=== PATIENT | male | born 1965 | race Caucasian/White ===

== ENCOUNTER 2020-02-19 17:00 | Outpatient (RCR) | payer MEDICAID, SELFPAY | END 2020-03-18 13:55 | disposition home or self-care (01) | LOC: PT.CARL 17:00 | PROVIDERS: PCP Physician Assistant; Visit Provider Nurse Practitioner Family | DX: M54.42 Lumbago with sciatica, left side (principal) | CPT/HCPCS: 97110; 97163 ==

== ENCOUNTER 2024-11-28 10:47 | Outpatient (CLI) | payer MEDICAID, SELFPAY ==
[2024-11-28 11:26] LABS: Basophils # 0.1 K/mm3 (0-0.2); Basophils % 0.8 % (0.1-2.0); Eosinophils # 0.1 K/mm3 (0.0-0.4); Eosinophils % 1.3 % (0.1-12.0); Hematocrit 47.4 % (42.0-52.0); Lymphocytes # 1.4 K/mm3 (0.7-4.5); Lymphocytes % 13.6 % (10-50); Mean Corpuscular HGB Conc 33.8 g/dL (31.8-35.4); Mean Corpuscular Hemoglobin 30.9 pg (27.0-31.2); Mean Corpuscular Volume 91.5 fl (80-94); Mean Platelet Volume 10.1 fl (7.4-10.4); Monocytes # 0.7 K/mm3 (0.1-1.0); Monocytes % 7.1 % (1.7-9.3); Neutrophils # 7.6 K/mm3 (1.8-7.8); Neutrophils % 76.3 % (37.0-80.0); Platelet Count 245 K/mm3 (142-424); Red Blood Count 5.18 M/mm3 (4.60-6.20); Red Cell Distribution Width 12.4 % (11.5-17.5)
[2024-11-28 11:49] LABS: Albumin Level 4.2 g/dl (3.5-5.0); Chloride 104 mmol/L (98-107)
[2024-11-28 11:50] LABS: Potassium 4.5 mmoL/L (3.5-5.1); Sodium 137 mmol/L (136-145)
[2024-11-28 11:52] LABS: Alanine Aminotransferase 36 U/L (12-78); Alkaline Phosphatase 92 U/L (38-126); Anion Gap 8.5 mEq/L (5-15); Aspartate Amino Transferase 31 U/L (17-59); Bilirubin,Direct 0.1 mg/dl (0.0-0.4); Bilirubin,Indirect 0.6 mg/dL (0.0-0.9); Bilirubin,Total 0.7 mg/dl (0.2-1.3); Bilirubin,Unconjugated 0.6 mg/dL (0.0-1.1); Blood Urea Nitrogen 20 mg/dl (9-20); Carbon Dioxide 29 mmol/L (22.0-30.0); Cholesterol 249 mg/dl (140-200); Estimated Glomerular Filt Rate 76 ml/min (>60); GFR (African American) 92 ML/MIN (>60); Total Protein,Serum 6.5 g/dl (6.3-8.2); Triglycerides 235 mg/dl (30-150); VLDL Cholesterol 47 mg/dL (0-40)
[2024-11-28 11:53] LABS: Glucose 91 mg/dl (74-100)
[2024-11-28 12:05] LABS: Direct LDL Cholesterol 152.13 mg/dL (100-129)
[2024-11-28 12:08] LABS: Free T4 (Free Thyroxine) 1.03 ng/dl (0.78-2.19)
[2024-11-28 12:25] LABS: Thyroid Stimulating Hormone 2.36 uIU/mL (0.465-4.68)
[2024-11-28 12:51] LABS: Hemoglobin A1C 5.7 % (4.0-6.0)
[2024-11-28 13:00] LABS: HDL Cholesterol 50 mg/dl (40-60)
== END 2024-11-28 23:59 | disposition home or self-care (01) ==
LOC: LAB 10:49
PROVIDERS: PCP Nurse Practitioner Family; Visit Provider Physician Assistant
DX: I25.10 Atherosclerotic heart disease of native coronary artery without angina pectoris (principal); I10 Essential (primary) hypertension; I25.2 Old myocardial infarction
CPT/HCPCS: 36415; 80048; 80061; 80076; 83036; 83735; 84439; 84443; 85025

== ENCOUNTER 2024-12-06 13:57 | Outpatient (CLI) | payer MEDICAID, SELFPAY ==
--- NOTE | 2024-12-06 14:01 | CT_ITS ---
FINAL REPORT CLINICAL HISTORY: SCREENING current smoker 1/2ppd x39 years COMPARISON: None FINDINGS: CT CHEST LOW DOSE SCREENING HISTORY: Screening exam for lung cancer. DOSE: CTDI vol: 2.90 mGy, DLP: 113.33 mGy*cm TECHNIQUE: Axial CT without IV contrast administration using low dose protocol. This study was performed with techniques to keep radiation doses as low as reasonably achievable, (ALARA). Individualized dose reduction techniques using automated exposure control or adjustment of mA and/or kV according to the patient's size were employed. There are clustered nodules within the lingula best seen on images 203 through 218 of series 2. The largest of these nodules measures up to 6 mm, on image 205. There are small peripheral nodules clustered within the lateral right upper lobe well-seen on images 193 through 207 of series 2. There are numerous peripheral 3 mm or less nodules in the posterior right lower lobe. The overall pattern suggest infectious etiology such as bronchiolitis. No dominant lung mass identified. No pleural or pericardial effusion is seen. No adenopathy or mass lesion is present. IMPRESSION: Numerous small nodules as above measuring 2-6 millimeters favored to represent bronchiolitis. LUNG RADS CATEGORY 0 RECOMMENDATION: 2-month chest CT follow-up recommended per Fleischner criteria. Reviewed, Interpreted and Dictated by Sophia Damon MD Transcribed by Sonali Jefferson Authenticated and [facility]
== END 2024-12-06 23:59 | disposition home or self-care (01) ==
LOC: RAD 13:58
PROVIDERS: PCP Nurse Practitioner Family; Visit Provider Nurse Practitioner Family
DX: Z12.2 Encounter for screening for malignant neoplasm of respiratory organs (principal); F17.210 Nicotine dependence, cigarettes, uncomplicated
CPT/HCPCS: 71271

== ENCOUNTER 2025-02-19 13:58 | Outpatient (CLI) | payer MEDICAID, SELFPAY ==
--- NOTE | 2025-02-19 13:59 | CT_ITS ---
FINAL REPORT CLINICAL HISTORY: INDETERMINATE PULMONARY NODULES COMPARISON: LDCT 12/06/2024 FINDINGS: CT CHEST without contrast COMPARISON: LDCT 12/06/2024. TECHNIQUE: Axial CT without contrast This study was performed with techniques to keep radiation doses as low as reasonably achievable, (ALARA). Individualized dose reduction techniques using automated exposure control or adjustment of mA and/or kV according to the patient's size were employed. FINDINGS: There has been resolution of the bilateral upper lobe bronchiolitis since the prior LDCT of 12/06/2024. There are chronic appearing changes in the posterior costophrenic angle of the right lower lobe. Changes of emphysema are noted. No pleural or pericardial effusion is seen . No adenopathy or mass lesion is present . IMPRESSION: 1. There has been interval resolution of the bilateral upper lobe bronchiolitis since the prior LDCT of 12/06/2024. 2. Chronic appearing changes are present in the posterior costophrenic angle of the right lower lobe. Recommend 8 to 12-month LDCT for further evaluation. This study was performed using automated techniques to achieve radiation exposure as low as reasonably achievable Reviewed, Interpreted and Dictated by Sophia Damon MD Transcribed by Olga Winters Authenticated and [facility][1]
--- OUTSIDE RECORDS SUMMARY | 2025-02-19 14:01 | XMS_ITS | Continuity of Care Document ---
Author Organization [employer], [employer] [facility] Address [address] [place] [address] Assessment No assessment recorded. Plan of Treatment Reminders Order Date Submit Date Provider Last Modified By Organization Details Last Modified Time Details Appointments ANNUAL EXAM 2024 11:00A M Magaly Andrade APRN Not available Not available Not available Lab None recorded. Referral None recorded. Procedures None recorded. Surgeries None recorded. Imaging CT, chest, w/o contrast 2024 025 [facility] (Former[facility], [facility]), [address], [place], [address], 02/13/2025 09:15:26 Medication Orders Breztri Aerospher e 160 mcg-9mcg- 4.8mcg/ac tuation HFA aerosol inhaler 2024 025 [employer] [facility], [address], [place], [id number], 02/12/2025 13:51:21 Patient TargetsNo targets recorded. Patient InstructionsNo instructions recorded. Reason for Referral None Reported. Problems Name Problem SNOMED Code Status Onset Date Resolution Date Notes Provider Name and Address Organization Details Recorded Time Myocardi al infarcti on 65731085 Completed 202204/26/2023 CHAD hyatt [facility] [employer] 14:07:31 Acute bronchit is 22082252 Active 2022 KATHRINE GARCIA- [address] [place], [address] , [place] [employer] 3 14:59:37 Tobacco dependen ce caused by cigarett es [id number] 866456 Active 2024 Problem Code: F17.210; Problem Code Type: ICD-10; Vanessa Andrade APRN [address] [place], [address] , [employer] 5 11:07:21 Atherosc lerosis of coronary artery without angina pectoris 09531174858 4103 Active 2024 Vnaessa Andrade APRN [address], [place], [address] [place] [address] , [employer] 5 11:07:22 Multiple nodules of lung 491156267 Active 2024 Vanessa Andrade APRN [address], [place], [address] [place] [address] , [employer] 5 13:31:50 Candidal balaniti s 78841268 Completed 201808/08/2019 Problem Code: B37.42; Problem Code Type: ICD-10; Not Available [facility] 2 22:46:02 Methicil yasmany resistan t Staphylo coccus aureus infectio n 774325142 Completed 201912/19/2020 Problem Code: B95.62; Problem Code Type: ICD-10; Not Available [facility] 2 22:46:02 Neoplasm of bone 076635604 Completed 201808/08/2019 Not Available [facility] 2 22:46:02 Nicotine dependen ce 32556433 Completed 201807/31/2022 Problem Code: F17.200; Problem Code Type: ICD-10; SILVA hyatt, [employer] 2 10:52:42 Tobacco dependen ce caused by cigarett es 78852422933 328901 Completed 201907/31/2022 Problem Code: F17.210; Problem Code Type: ICD-10; Vanessa Andrade APRN [address] [place], [address] , [employer] 5 11:07:21 Nicotine dependen ce 01696427 Completed 201805/25/2021 Problem Code: F17.200; Problem Code Type: ICD-10; SILVA STEPHENSNEAR null, [employer] 2 10:52:42 Primary insomnia 6694418 Completed 201707/04/2018 Problem Code: F51.01; Problem Code Type: ICD-10; Not Available [facility] 2 22:46:02 Chronic pain syndrome 872595266 Completed 202007/31/2022 Problem Code: G89.4; Problem Code Type: ICD-10; SILVA STEPHENSNEAR null, [employer] 2 10:52:41 Acute maxillar y sinusiti s 42820997 Completed 201808/08/2019 Problem Code: J01.00; Problem Code Type: ICD-10; Not Available [facility] 2 22:46:02 Acute pharyngi tis 648926753 Completed 201807/31/2022 SILVA ANGELONEAR null, [employer] 2 10:52:41 Acute pharyngi tis 101786533 Completed 201808/08/2019 SILVA ANGELONEAR null, [employer] 2 10:52:41 Infectiv e pneumoni a 227171340 Completed 201709/03/2018 Problem Code: J16.8; Problem Code Type: ICD-10; Not Available [facility] 2 22:46:03 Acute exacerba tion of chronic obstruct fozia pulmonar y disease 042437838 Completed 201905/25/2021 Problem Code: J44.1; Problem Code Type: ICD-10; Vanessa Andrade, [employer] [address] [place], [address] , [employer] 5 13:33:27 Chronic obstruct fozia pulmonar y disease 48144501 Active 2017 Problem Code: J44.9; Problem Code Type: ICD-10; CHAD GUADALUPE null, [employer] 3 14:07:31 Exacerba tion of intermit tent asthma 582318098 Completed 201807/31/2022 Problem Code: J45.21; Problem Code Type: ICD-10; SILVA STEPHENSNEAR null, [employer] 2 10:52:41 Exacerba tion of intermit tent asthma 384206098 Completed 201707/01/2018 Problem Code: J45.21; Problem Code Type: ICD-10; SILVA MYNEAR null, [employer] 2 10:52:41 Atelecta sis 02407403 Completed 201808/08/2019 Problem Code: J98.11; Problem Code Type: ICD-10; Not Available [facility] 2 22:46:03 Abscess of buttock 46105767 Completed 201912/19/2020 Problem Code: L02.31; Problem Code Type: ICD-10; Not Available [facility] 2 22:46:03 Constipa tion 96927458 Completed 201807/31/2022 SILVA STEPHENSSUNDAYR null, [employer] 2 10:52:41 Cellulit is of buttock 49295468 Completed 201907/31/2022 Problem Code: L03.317; Problem Code Type: ICD-10; SILVA ANGELONEAR null, [employer] 2 10:52:41 Neck pain 05391200 Completed 201807/31/2022 SILVA ANGELONEAR null, [employer] 2 10:52:42 Acute back pain with sciatica 812860661 Completed 201905/25/2021 Problem Code: M54.42; Problem Code Type: ICD-10; Not Available [facility] 22:46:04 Neck pain 40101988 Completed 201808/08/2019 SILVA CARMONA null, [employer] 10:52:42 Cough 87844863 Completed 201807/31/2022 Problem Code: R05; Problem Code Type: ICD-10; SILVA BURNHAMR null, [employer] 10:52:41 Chest pain 21059164 Completed 201809/10/2019 Problem Code: R07.9; Problem Code Type: ICD-10; SILVA BURNHAMR null, [employer] 10:52:41 Dyspnea 312995327 Completed 201707/19/2018 Problem Code: R06.02; Problem Code Type: ICD-10; SILVA BURNHAMR null, [employer] 10:52:41 Wheezing 97214352 Completed 202007/31/2022 Problem Code: R06.2; Problem Code Type: ICD-10; SILVA BURNHAMR null, [employer] 10:52:42 Chest pain 12337137 Completed 201807/31/2022 Problem Code: R07.89; Problem Code Type: ICD-10; SILVA BURNHAMR null, [employer] 10:52:41 Cough 05014790 Completed 201809/10/2019 Problem Code: R05; Problem Code Type: ICD-10; SILVA BURNHAMR null, [employer] 10:52:41 Fracture of upper end of humerus 681583982 Completed 202007/31/2022 Problem Code: S42.201A ; Problem Code Type: ICD-10; SILVA BURNHAMR null, [employer] 10:52:41 Traumati c rupture of rotator cuff 947140315 Completed 201706/10/2018 Problem Code: S46.091A ; Problem Code Type: ICD-10; Not Available [facility] 22:46:06 Exposure to SARS-CoV -2 Completed 202005/25/2021 Problem Code: Z20.822; Problem Code Type: ICD-10; Not Available [facility] 22:46:06 Influenz a vaccine needed 74282183830 Completed 201808/08/2019 Problem Code: Z23; Problem Code Type: ICD-10; SILVA ANGELONEAR null, [employer] 10:52:41 Influenz a vaccine needed 90366889306 Completed 202007/31/2022 Problem Code: Z23; Problem Code Type: ICD-10; SILVA ANGELONEAR null, [employer] 2 10:52:41 Acute exacerba tion of chronic obstruct fozia pulmonar y disease 664955577 Completed 202005/25/2021 Problem Code: J44.1; Problem Code Type: ICD-10; Vanessa Andrade, [employer] [address] [place] [address], [address] , [employer] 5 13:33:27 Body mass index 20-24 - normal 804736471 Completed 201808/08/2019 SILVA ANGELONEAR null, [employer] 2 10:52:41 Body mass index 20-24 - normal 052700221 Completed 201807/31/2022 SILVA MYNEAR null, [employer] 2 10:52:41 Allergic contact dermatit is caused by plant material 19771773966 474368 Completed 201907/31/2022 Problem Code: L23.7; Problem Code Type: ICD-10; SILVA MYNEAR null, [employer] 2 10:52:41 Pain of right shoulder joint 22999942250 609945 Completed 201704/25/2018 Problem Code: M25.511; Problem Code Type: ICD-10; Not Available [facility] 2 22:46:09 Modesta gordon 061491132 Completed 201707/04/2018 Problem Code: 307.41; Problem Code Type: ICD-9; Not Available [facility] 2 22:46:09 Dyspnea 899057286 Completed 202007/31/2022 Problem Code: R06.00; Problem Code Type: ICD-10; SILVA MYNEAR null, [employer] 10:52:41 Tenderne ss of epigastr ic region 827593490 Completed 201807/31/2022 Problem Code: R10.816; Problem Code Type: ICD-10; SILVA MYNEAR null, [employer] 10:52:41 Pneumoni a 392851686 Completed 201709/03/2018 Problem Code: 483.8; Problem Code Type: ICD-9; Not Available [facility] 2 22:46:10 Respirat ory symptom 665271736 Completed 201707/19/2018 Not Available [facility] 2 22:46:10 Shoulder joint pain 237507370 Completed 201704/25/2018 Problem Code: 719.41; Problem Code Type: ICD-9; Not Available [facility] 2 22:46:10 Injury of shoulder region 334923127 Completed 201706/10/2018 Problem Code: 959.2; Problem Code Type: ICD-9; Not Available [facility] 2 22:46:11 Cough 18612011 Completed 201707/01/2018 Problem Code: 786.2; Problem Code Type: ICD-9; SILVA MYNEAR null, [employer] 10:52:41 Bite of nonvenom ous insect Completed 201907/31/2022 SILVA MYNEAR null, [employer] 2 10:52:42 Influenz a vaccine needed 23570131160 06 Completed 201912/19/2020 Problem Code: Z23; Problem Code Type: ICD-10; SILVA hyatt, [employer] 2 10:52:41 Problem Notes None recorded. Procedures Surgical History Date Name Laterality Status Provider Name and Address Organization Details Recorded Time 3 placement of stent in cardiac conduit completed Vanessa Andrade APRN [address] [place] [address], [address], [employer]. 11/15/2024 11:10:39 6 screening colonoscopy completed Chana Rojas [employer]. 11/05/2022 10:10:44 Imaging Results None recorded. Procedure Notes None recorded. Medical Equipment None Reported. Allergies Allergen ID Allergen Name Allergen Category Reaction Reaction Severity Criticality Documentation Date Start Date Code Code System Note Provider Name and Address Organization Details Recorded Time 49027 Product containin g penicilli n (product) medicatio n rash mild Not available 05/05/20222019 22648 8001 SNOMED CHAD GUADALUPE [employer] 3 14:07:30 17857 morphine sulfate medicatio n Not available Not available Not available 05/05/2022 46943 RxNorm Not Available [facility] 2 22:56:37 84923 tolmetin sodium medicatio n Not available Not available Not available 05/05/2022 90564 RxNorm Chana Rojas [employer] 3 10:09:18 86381 codeine sulfate medicatio n Not available Not available Not available 05/05/2022 19751 RxNorm Not Available [facility] 2 22:56:38 32850 morphine medicatio n rash mild Not available 04/29/20232019 7052 RxNorm CHAD [employer] 3 14:07:30 35199 codeine medicatio n rash mild Not available 04/29/20232019 2670 RxNorm CHAD COLLINS [facility] [employer], [facility]. 14:07:30 Medications Name Sig Start Date Stop Date Status Note LastModified by Organization Details LastModified Time Prescriptio n - Renewal 07/25 completed Not Available Not Available Not Available atorvastati n 40 mg tablet TAKE 1 TABLET 1 TIME EACH DAY AT BEDTIME 07/25 completed Not Available Not Available Not Available Bromfed DM 2 mg-30 mg-10 mg/5 mL oral syrup take 10 millilite rs by oral route every 4 hours PRN cough 09/08 completed Not Available Not Available Not Available promethazin e-DM 6.25 mg-15 mg/5 mL oral syrup Take 1 teaspoon by mouth q 4 to 6 hr 03/10 completed Not Available Not Available Not Available atorvastati n 80 mg tablet TAKE 1 TABLET 1 TIME EACH DAY 07/25 completed Not Available Not Available Not Available carvedilol 6.25 mg tablet TAKE 1 TABLET 2 TIMES EACH DAY 07/25 completed Not Available Not Available Not Available prednisone 10 mg tablet TAKE ACCORDING TO ATTACHED INSTRUCTI ONS 02/07 completed Not Available Not Available Not Available doxycycline hyclate 100 mg capsule TAKE 1 CAPSULE 2 TIMES EACH DAY FOR 10 DAYS 07/25 completed Not Available Not Available Not Available carvedilol 12.5 mg tablet TAKE 1 TABLET 2 TIMES EACH DAY WITH FOOD 07/25 completed Not Available Not Available Not Available ipratropium 0.5 mg-albutero l 3 mg (2.5 mg base)/3 mL nebulizatio n soln INHALE CONTENTS OF 1 VIAL USING A NEBULIZER EVERY 4 HOURS NEEDED active Not Available Not Available No t Available cetirizine 10 mg tablet TAKE 1 TABLET 1 TIME EACH DAY NEEDED 07/31 completed Not Available Not Available Not Available azithromyci n 250 mg tablet TAKE 2 TABLETS ON THE FIRST DAY, THEN TAKE 1 TABLET EACH DAY ON THE NEXT 4 DAYS. 02/07 completed Not Available Not Available Not Available ibuprofen 800 mg tablet TAKE 1 TABLET EVERY 8 HOURS NEEDED FOR PAIN CONTROL 11/15 completed Not Available Not Available Not Available tizanidine 4 mg tablet 1 po q hs 06/10 completed Not Available Not Available Not Available methadone 10 mg tablet 1 tablet QID 07/31 completed Not Available Not Available Not Available meloxicam 15 mg tablet take 1 tablet (15 mg) by oral route once daily for hip pain 11/20 completed Not Available Not Available Not Available prednisone 20 mg tablet TAKE 3 TABLETS 1 TIME EACH DAY FOR 5 DAYS 07/25 completed Not Available Not Available Not Available prednisone 5 mg tablet 10 pills po today and decrease by one pill each day 07/31 completed Not Available Not Available Not Available dextrometho makenna-gabrielf enesin 10 mg-100 mg/5 mL oral syrup Take 1 teaspoon by mouth q4h prn for cough 09/30 completed Not Available Not Available Not Available aspirin 81 mg tablet,scott yed release TAKE 1 TABLET 1 TIME EACH DAY active Not Available Not Available No t Available amitriptyli ne 50 mg tablet Take 1 tablet(s) by mouth at bedtime. 09/02 completed Not Available Not Available Not Available Medrol 4 mg tablet as directed 09/08 completed Not Available Not Available Not Available Zantac 150 mg tablet Take 1 tablet(s) by mouth bid 03/25 completed Not Available Not Available Not Available Serevent Diskus 50 mcg/dose powder for inhalation inhale 1 puff by inhalatio n route 2 times per day in the morning and evening approxima tely 12 hours apart 06/16 completed Not Available Not Available Not Available prednisone 10 mg tablets in a dose pack as directed 02/07 completed Not Available Not Available Not Available Zofran 4 mg tablet Give 1 tablet every 6 hrs as needed for nausea and/or vomiting 01/04 completed Not Available Not Available Not Available famotidine 20 mg tablet TAKE 1 TABLET EVERY 12 HOURS FOR 5 DAYS 11/15 completed Not Available Not Available Not Available magnesium oxide 400 mg (241.3 mg magnesium) tablet TAKE 1 TABLET 1 TIME EACH DAY 02/07 completed Not Available Not Available Not Available benzonatate 100 mg capsule TAKE 1 CAPSULE EVERY 8 HOURS NEEDED FOR COUGH AND CONGESTIO N 11/15 completed Not Available Not Available Not Available doxycycline monohydrate 100 mg capsule TAKE 1 CAPSULE 2 TIMES EACH DAY FOR 10 DAYS 11/25 completed Not Available Not Available Not Available Advair Diskus 250 mcg-50 mcg/dose powder for inhalation inhale 1 puff by inhalatio n route 2 times per day in the morning and evening approxima tely 12 hours apart 06/15 completed Not Available Not Available Not Available montelukast 10 mg tablet take 1 tablet (10 mg) by oral route once daily in the evening for allergies 07/31 completed Not Available Not Available Not Available Levaquin 500 mg tablet Take 1 tablet(s) by mouth daily for 10 days 11/09 completed Not Available Not Available Not Available metoprolol succinate ER 25 mg tablet,exte nded release 24 hr 07/31 completed Not Available Not Available Not Available polyethylen e glycol 3350 17 gram/dose oral powder 1 capful in beverage bid until you get diarrhea 04/05 completed Not Available Not Available Not Available levofloxaci n 750 mg tablet TAKE 1 TABLET 1 TIME EACH DAY FOR 7 DAYS 07/25 completed Not Available Not Available Not Available methylpredn isolone 4 mg tablets in a dose pack TAKE ACCORDING TO PACKAGE INSTRUCTI ONS 11/15 completed Not Available Not Available Not Available ondansetron 4 mg disintegrat ing tablet PLACE 1 TABLET UNDER THE TONGUE AND ALLOW TO DISSOLVE EVERY 6 TO 8 HOURS NEEDED 04/07 completed Not Available Not Available Not Available cefdinir 300 mg capsule take 2capsules (300 mg) by oral route after the evening meal 06/15 completed Not Available Not Available Not Available clotrimazol e 1 % topical cream apply to the affected and surroundi ng areas of skin by topical route 4 times per day in the morning and evening 08/08 completed Not Available Not Available Not Available doxycycline hyclate 100 mg tablet TAKE 1 TABLET EVERY 12 HOURS FOR 7 DAYS 11/15 completed Not Available Not Available Not Available loratadine 10 mg tablet one tablet daily as needed 01/14 completed Not Available Not Available Not Available naproxen 500 mg tablet take 1 tablet (500 mg) by oral route 2 times per day with food 11/20 completed Not Available Not Available Not Available Ventolin HFA 90 mcg/actuati on aerosol inhaler INHALE 2 PUFFS EVERY 4 TO 6 HOURS NEEDED active Not Available Not Available No t Available Bactrim DS 800 mg-160 mg tablet take 1 tablet by oral route every 12 hours for 10 days 04/29 completed Not Available Not Available Not Available valsartan 40 mg tablet TAKE 1 TABLET 1 TIME EACH DAY 07/25 completed Not Available Not Available Not Available guaifenesin 400 mg tablet 07/31 completed Not Available Not Available Not Available rosuvastati n 20 mg tablet TAKE 1 TABLET 1 TIME EACH DAY active Not Available Not Available No t Available Flovent HFA 220 mcg/actuati on aerosol inhaler inhale 1 puff (220 mcg) by inhalatio n route 2 times per day 06/16 completed Not Available Not Available Not Available varenicline tartrate 0.5 mg (11)-1 mg (42) tablets in a dose pack TAKE ACCORDING TO PACKAGE INSTRUCTI ONS active Not Available Not Available No t Available Symbicort 160 mcg-4.5 mcg/actuati on HFA aerosol inhaler INHALE 1 PUFF 1 TIME EACH DAY 11/15 completed Not Available Not Available Not Available Symbicort 80 mcg-4.5 mcg/actuati on HFA aerosol inhaler INHALE 2 PUFFS 2 TIMES EACH DAY 07/25 completed Not Available Not Available Not Available Brilinta 90 mg tablet TAKE 1 TABLET 2 TIMES EACH DAY 07/25 completed Not Available Not Available Not Available Chantix Continuing Month Box 1 mg tablet take 1 tablet (1 mg) with glass of water by oral route 2 times per day after meals 11/20 completed Not Available Not Available Not Available Combivent Respimat 20 mcg-100 mcg/actuati on solution for inhalation inhale 1 puff by inhalatio n route 4 times per day ; may take additiona l puffs as needed not to exceed 6 puffs in 24hrs 03/06 completed Not Available Not Available Not Available Breo Ellipta 100 mcg-25 mcg/dose powder for inhalation Take 1 inhalatio n(s) by mouth daily 04/04 completed Not Available Not Available Not Available Incruse Ellipta 62.5 mcg/actuati on powder for inhalation inhale 1 puff (62.5 mcg) by inhalatio n route once daily at the same time each day 06/15 completed Not Available Not Available Not Available Stiolto Respimat 2.5 mcg-2.5 mcg/actuati on solution for inhalation INHALE 2 PUFFS 1 TIME EACH DAY, AT THE SAME TIME EACH DAY. 07/25 completed Not Available Not Available Not Available Breo Ellipta 200 mcg-25 mcg/dose powder for inhalation inhale 1 puff by inhalatio n route once daily at the same time each day 04/06 completed Not Available Not Available Not Available naloxone 4 mg/actuatio n nasal spray 07/31 completed Not Available Not Available Not Available AirDuo RespiClick 232 mcg-14 mcg/actuati on breath activated inhale 1 puff by inhalatio n route 2 times per day approxima tely 12 hours apart at the same time each day 03/06 completed Not Available Not Available Not Available Trelegy Ellipta 100 mcg-62.5 mcg-25 mcg powder for inhalation inhale 1 puff by inhalatio n route once daily at the same time each day 11/20 completed Not Available Not Available Not Available Flucelvax Quad 60 mcg (15 mcg x 4)/0.5 mL intramuscul ar susp inject 0.5 millilite r (60 mcg) by intramusc ular route once 08/08 completed Not Available Not Available Not Available Breztri Aerosphere 160 mcg-9mcg-4. 8mcg/actuat ion HFA aerosol inhaler INHALE 2 PUFFS 2 TIMES EACH DAY active Not Available Not Available No t Available Vitals Date Recorded Body height Body mass index (BMI) Body weight Body temperature Heart rate Oxygen saturation Oxygen saturation in Arterial blood by Pulse oximetry Systolic blood pressure Diastolic blood pressure Provider Name and Address Organization Details Last Updated DateTime 5 172.72 cm 28 kg/m2 62492 g 97.8 [degF] 88 /min 92 % 92 % 123 mm[Hg] 68 mm[Hg] SILVA CARMONA [employer] 5 13:20:14 Social History Question Answer Notes LastModified by Organizat ion Details LastModified Time Tobacco Smoking Status Current Every Day Smoker SILVA CARMONA [employer] 04/07/2023 13:53:49 Do You Have An Advance Directive? No Information n ot available 07/31/2022 Is Your Home Air Conditioned? Yes Information not available 07/31/2022 Are You Blind Or Do You Have Difficulty Seeing? No [email or web address] Information n ot available 04/29/2023 In The 14 Days Before Symptom Onset, Have You Had Close Contact With A Laboratory-confirm ed COVID-19 While That Case Was Ill? No Information n ot available 07/31/2022 In The 14 Days Before Symptom Onset, Have You Had Close Contact With A Person Who Is Under Investigation For COVID-19 While That Person Was Ill? No Information not available 07/31/2022 Have You Been To An Area Known To Be High Risk For COVID-19? No Information not available 07/31/2022 Are You Deaf Or Do You Have Serious Difficulty Hearing? No [email or web address] Information not available 04/29/2023 What Type Of Diet Are You Following? REGULAR Information n ot available 07/31/2022 Have There Been Any Changes To Your Family Or Social Situation? No Information no t available 07/31/2022 Are There Any Guns Present In Your Home? No Information not available 07/31/2022 Do You Have A Medical Power Of Mapping Pilot? No Information not available 07/31/2022 What Was The Date Of Your Most Recent Tobacco Screening? 02/07/2025 Information not available 02/07/2025 What Is Your Current Pack Years? [email or web address] Information not available 07/31/2022 What Is Your Relationship Status? Information not available 07/31/2022 Do You Use Your Seat Belt Or Car Seat Routinely? Yes Information not available 07/31/2022 Do You Have Smoke And Carbon Monoxide Detectors In Your Home? Yes Information not available 07/31/2022 Are You Passively Exposed To Smoke? No Information no t available 07/31/2022 Are There Any Smokers In Your House? No Information not available 07/31/2022 How Much Tobacco Do You Smoke? 0.25 PPD [email or web address] Information not available 04/29/2023 Do You Participate In Social Media? No [email or web address] Information not available 11/15/2024 Do You Use Sunscreen Routinely? No Information not available 07/31/2022 Has Tobacco Cessation Counseling Been Provided? No Information not available 07/31/2022 Have You Recently Traveled Abroad? No Information not available 07/31/2022 Do You Have Difficulty Walking Or Climbing Stairs? No [email or web address] Information not available 04/29/2023 Are You Currently In School? No Information not available 07/31/2022 Do You Have Any Dietary Restrictions? No Information not available 07/31/2022 Sex: Male Functional Status Question Answer Note LastModified by Organizat ion Details LastModified Time Do you use any illicit or recreational drugs? No Information not available 07/31/2022 Do you or have you ever used any other forms of tobacco or nicotine? No Information not available 07/31/2022 What is your level of alcohol consumption? None Information not available 07/31/2022 Are you currently employed? No Information not available 07/31/2022 Do you have transportation difficulties? No [email or web address] Information not available 04/29/2023 Are you able to walk? YESWOREST [id number] Information not available 04/29/2023 Do you have difficulty doing errands alone? No Information not available 04/29/2023 Are you able to care for yourself? Yes Information not available 07/31/2022 Do you have difficulty dressing or bathing? No [email or web address] Information not available 04/29/2023 Mental Status Question Answer Note LastModified by Organization D etails LastModified Time Do you have difficulty concentrating, remembering or making decisions? No [email or web address] Information no t available 04/29/2023 Family History Relationship Description Onset Age of this Age Resolved Age Notes LastModified by Organization Details LastModified Time Sister Family history of Cardiovascul ar disease [id number] Not available 14:23:46 Sister Family history of malignant neoplasm [id number] Not available 14:24:19 Father Family history of malignant neoplasm Not available 14:24:19 Paternal Grandmother Family history of malignant neoplasm [email or web address] Not available 14:24:19 Medical History Condition Response Heart Disease Y Emergency room visit since last appointm ent. N COPD Y Asthma Y Immunizations Vaccine Type Date Status Note Provider Nam e and Address Organization Details Recorded Time Influenza, split virus, quadrivalent, preservative 8 completed Not Available [facility] 04/28/2023 15:20:13 Influenza, MDCK, quadrivalent, preservative 9 completed Not Available [facility] 04/28/2023 15:20:13 Influenza, split virus, quadrivalent, preservative 0 completed Not Available [facility] 04/28/2023 15:20:13 Influenza, split virus, quadrivalent, PF 1 completed Not Available [facility] 04/28/2023 15:20:13 Influenza, split virus, trivalent, preservative 4 completed Not Available [facility] 04/28/2023 15:20:13 pneumococcal polysaccharide PPV23 5 completed JOELLE Dejesus - [place] [employer], [facility] 02/07/2025 13:50:40 Past Encounters Encounter ID Performer Location Encounter Start Date Encounter Closed Date Diagnosis/Indication Diagnosis SNOMED-CT Code Diagnosis ICD10 Code Diagnosis Note [id number] Vanessa Andrade [facility] [address] [place] [phone] 02/07/2025 12:44:12 02/07/2025 13:52:08 Multiple nodules of lung 559897413 R91.8 Now due for 3 month radiologis t recommende d f/up CHEST CT. Chronic ob structive pulmonary disease 80372852 J44.9 He states Breztri has been very effective with decreased use of rescue albuterol! Active immunization 3387 9002 Z23 Tobacco de pendence caused by cigarettes [id number] F17.210 Smoking cessation again encouraged . Health Concerns Section Related Observation LastModified by Organization Detai ls LastModified Time None Recorded Concern Status LastModified by Organization Details LastModified Time None Recorded Payers Encounter Date Sequence Insurance Name Policy Number Policy Casper Covered Member ID Casper Member ID Guarantor Name 02/07/2025 1 [facility] (MEDICAID HMO) Robbie Nawaf [id number] Robbie Mccracken Notes Date Note Type Note Provider Name and Address Organization Details Recorded Time 02/07/2025 text/html COPDReported bypatient.Onset/Timing :multiple times per day Duration:chronic; has noted for years; attacks are frequent Severity:very limiting; slowly worsening; moderate Context:cigarette smoking; recurrent bronchopulmonary infections Alleviating factors:relieved with bronchodilator Aggravating factors:worse with cigarette smoking;worse with exertion Associated Symptoms:dyspnea during exertion;decrease in exercise capacity;large amounts of clear sputum;cough;anxiety LDCT was completed 3 moths ago. Robbie had several undeterminate pulmonary nodules. Radiologist recommended repeating CT of chest for follow up in 3 months. That is now due. He continues to smoke but has cut back. Vanessa Andrade, [employer] [address] [place], [address], [facility] [employer] 02/11/2025 19:38:14
--- OUTSIDE RECORDS SUMMARY | 2025-02-19 14:01 | XMS_ITS | Encounter Summary ---
Author Organization Healthcare Address [address] [place] [address] Care Team Providers Care Community Support Professional Name Role Phone Unavailable Primary Care Provider Unavailabl e Encounter Details Date Type Department Care Team (Late st Contact Info) Description 04/10/2021 Lab Requisition [facility] [address] [place] [address] Robbie Reynaga Routine general medical examination at a health care facility Social History Tobacco Use Types Packs/Day Years Used Date Smoking Tobacco: Never Assessed Sex and Gender Information Value Date Recorded Sex Assigned at Not on file Legal Sex Male 6:16 AM EDT Gender Identity Not on file Sexual Orientation Not on file documented as of this encounter Plan of Treatment Not on file documented as of this encounter Procedures Procedure Name Priority Date/Time Associated Diagnosis Comments SARS COV-2/COVID-19 BY PCR Routine 04/10/2021 4:45 AM EDT Routine general medical examination at a health care facility [ICD-10-CM] documented in this encounter Results * SARS CoV-2/COVID-19 by PCR (04/10/2021 4:45 AM EDT) SARS CoV-2/COVID-1 9 RNA PCR Result Not Detected Not Detected 04/10/2021 2:34 PM EDT [facility] Swab Nasopharyngeal structure / Unknown 04/10/2021 4:45 AM EDT 04/10/2021 6:17 AM EDT Narrative [facility] - 04/10/2021 2:34 PM EDT This assay is for in vitro diagnostic use under FDA emergency use authorization only. Negative results do not preclude infection with the SARS CoV-2 virus and should not be the sole basis of a patient treatment/management or public health decision. Follow up testing should be performed according to the current CDC recommendations. This test was performed using the [employer] SARS CoV-2 assay, a PCR-based method. The limit of detection (LoD) for this assay is 40 genome equivalents/mL. Negative results should be considered presumptive and do not preclude current or future infection obtained through community transmission or other exposures. Negative results must be considered in the context of an individual's recent exposures, history, presence of clinical signs and symptoms consistent with COVID-19. us Robbie Reynaga LAB MICROBIOLOGY - GENERAL ORDER TREE Final Result [facility] [address] [place] [phone] documented in this encounter Visit Diagnoses Diagnosis Routine general medical examination at a health care facility documented in this encounter
--- OUTSIDE RECORDS SUMMARY | 2025-02-19 14:01 | XMS_ITS | Encounter Summary ---
Author Organization [facility] Address [address] [place] [address] Care Team Providers Care Metal Flow Coordinator Name Role Phone Unavailable Primary Care Provider Unavailabl e Encounter Details Date Type Department Care Team (Late st Contact Info) Description 04/11/[address] [facility] [address] [place] [address] Robbie Reynaga Routine general medical examination at [...] Procedure Name Priority Date/Time Associated Diagnosis Comments HEPATITIS A ANTIBODY IGG Routine 04/11/2021 7:10 AM EDT Routine general medical examination at a health care facility [ICD-10-CM] HEPATITIS C ANTIBODY W/REFLEX TO HCV QUANT PCR Routine 04/11/2021 7:10 AM EDT Routine general medical examination at a health care facility [ICD-10-CM] SERUM DRUG SCREEN Routine 04/11/2021 7:1 0 AM EDT Routine general medical examination at a health care facility [ICD-10-CM] HC HEPATITIS B SURFACE AB TEST - HEPATITIS B SURFACE ANTIBODY Routine 04/11/2021 7:10 AM EDT Routine general medical examination at a health care facility [ICD-10-CM] HEPATITIS B SURFACE ANTIGEN Routine 04/11/2021 7:10 AM EDT Routine general medical examination at a health care facility [ICD-10-CM] CBC W/O DIFFERENTIAL Routine 04/11/2021 7:10 AM EDT Routine general medical examination at a health care facility [ICD-10-CM] HEMOGLOBIN A1C Routine 04/11/2021 7:10 AM EDT Routine general medical examination at a health care facility [ICD-10-CM] LIPID PROFILE, PLASMA Routine 04/11/2021 7:10 AM EDT Routine general medical examination at a health care facility [ICD-10-CM] COMPREHENSIVE METABOLIC PANEL, PLASMA Routine 04/11/2021 7:10 AM EDT Routine general medical examination at a health care facility [ICD-10-CM] documented in this encounter Results * (ABNORMAL) Serum Drug Screen (04/11/2021 7:10 AM EDT) 9 Carboxy THC <5 <5 ng/mL 04/16/2021 6:06 PM EDT [facility] Alprazolam <5 <5 ng/mL 04/16/2021 6:06 PM EDT [facility] Amphetamine <10 <10 ng/mL 04/16/2021 6:06 PM EDT [facility] Benzolyecgonine <20 <20 ng/mL 6:06 PM EDT [facility] Buprenorphine <1 <1 ng/mL 04/16/2021 6:06 PM EDT [facility] Butalbital <50 <50 ng/mL 04/16/2021 6:06 PM EDT [facility] Clonazepam <5 <5 ng/mL 04/16/2021 6:06 PM EDT [facility] Codeine <5 <5 ng/mL 04/16/2021 6:06 PM EDT [facility] Diazepam <5 <5 ng/mL 04/16/2021 6:06 PM EDT [facility] Fentanyl <1 <1 ng/mL 04/16/2021 6:06 PM EDT [facility] Hydrocodone <2 <2 ng/mL 04/16/2021 6:06 PM EDT [facility] Hydromorphone <5 <5 ng/mL 04/16/2021 6:06 PM EDT [facility] Lorazepam <5 <5 ng/mL 04/16/2021 6:06 PM EDT [facility] MDA <10 <10 ng/mL 04/16/2021 6:06 PM EDT [facility] MDMA <10 <10 ng/mL 04/16/2021 6:06 PM EDT [facility] Meperidine <5 <5 ng/mL 04/16/2021 6:06 PM EDT [facility] Methadone 89(H) <10 ng/mL 04/16/2021 6:06 PM EDT [facility] Methadone Metabolite 16(H) <10 ng/mL 03/30 6:06 PM EDT [facility] Methamphetamine <10 <10 ng/mL 6:06 PM EDT [facility] Midazolam <5 <5 ng/mL 04/16/2021 6:06 PM EDT [facility] Morphine <2 <2 ng/mL 04/16/2021 6:06 PM EDT [facility] Norbuprenorphine <5 <5 ng/mL 04/16/20 6:06 PM EDT [facility] Nordiazepam <10 <10 ng/mL 04/16/2021 6:06 PM EDT [facility] Oxazepam <5 <5 ng/mL 04/16/2021 6:06 PM EDT [facility] Oxycodone <2 <2 ng/mL 04/16/2021 6:06 PM EDT [facility] Oxymorphone <2 <2 ng/mL 04/16/2021 6:06 PM EDT [facility] Phenobarbital <50 <50 ng/mL 04/16/2021 6:06 PM EDT [facility] Temazepam <5 <5 ng/mL 04/16/2021 6:06 PM EDT [facility] Tramadol <20 <20 ng/mL 04/16/2021 6:06 PM EDT [facility] Blood Venous blood specimen / Unknown Venipuncture / Unknown 04/11/2021 7:10 AM EDT 04/11/2021 7:51 AM EDT [facility] - 04/16/2021 6:06 PM EDT Test performed by LC-MS/MS at the [facility]. This test was developed and its performance characteristics determined by [facility]. It has not been cleared or approved by the FDA. The laboratory is regulated under CLIA as qualified to perform high-complexity testing. This test is used for clinical purposes. Robbie Melendezgeorge LAB BLOOD ORDERABLES Final Resul t [facility] [address] [place] [address] * (ABNORMAL) CBC W/O Differential (04/11/2021 7:10 AM EDT) WBC Count 4.88 3.70 - 10.30 10*3/uL LAB HEMATOLOGY METHOD 04/11/2021 9:24 AM EDT [facility] RBC Count 4.42(L) 4.60 - 6.10 10*6/uL LAB HEMATOLOGY METHOD 04/11/2021 9:24 AM EDT [facility] HGB 14.0 13.7 - 17.5 g/dL LAB HEMATOLOGY METHOD 04/11/2021 9:24 AM EDT [facility] HCT 42.0 40.0 - 51.0 % LAB HEMATOLOGY METHOD 04/11/2021 9:24 AM EDT [facility] Platelet Count 223 155 - 369 10*3/uL LAB HEMATOLOGY METHOD 04/11/2021 9:24 AM EDT [facility] MCV 95 79 - 98 fL LAB HEMATOLOGY METHOD 04/11/2021 9:24 AM EDT [facility] MCH 31.7 26.0 - 32.0 pg LAB HEMATOLOGY METHOD 04/11/2021 9:24 AM EDT [facility] MCHC 33.3 30.7 - 35.5 g/dL LAB HEMATOLOGY METHOD 04/11/2021 9:24 AM EDT [facility] RDW 13.2 11.5 - 14.5 % LAB HEMATOLOGY METHOD 04/11/2021 9:24 AM EDT [facility] MPV 11.0 8.8 - 12.5 fL LAB HEMATOLOGY METHOD 04/11/2021 9:24 AM EDT [facility] nRBC 0.0 <=0.0 per 100 WBCs LAB HEMATOLOGY METHOD 04/11/2021 9:24 AM EDT [facility] Blood Venous blood specimen / Unknown Venipuncture / Unknown 04/11/2021 7:10 AM EDT 04/11/2021 7:34 AM EDT us Robbie Reynaga LAB BLOOD ORDERABLES Final Resul t Performing Organization Address [facility] de Phone Number [facility] [address] [place] [address] * Hepatitis A, IgG (04/11/2021 7:10 AM EDT) Hepatitis A Antibody IgG Negative Negative 04/11/2021 11:29 AM EDT [facility] Blood Venous blood specimen / Unknown Venipuncture / Unknown 04/11/2021 7:10 AM EDT 04/11/2021 7:44 AM EDT us Robbie Reynaga LAB BLOOD ORDERABLES Final Resul t Performing Organization Address [facility] Phone Number [facility] [address] [place] [address] * Hepatitis C antibody (04/11/2021 7:10 AM EDT) Hepatitis C Antibody Negative Negative 04/11/2021 11:29 AM EDT [facility] Blood Venous blood specimen / Unknown Venipuncture / Unknown 04/11/2021 7:10 AM EDT 04/11/2021 7:44 AM EDT us Robbie Reynaga LAB BLOOD ORDERABLES Final Resul t Performing Organization Address [facility] de Phone Number [facility] [address] [place] [address] * Hepatitis B surface antigen (04/11/2021 7:10 AM EDT) Hepatitis B Surf Antigen Negative Negative 04/11/2021 11:29 AM EDT [facility] Blood Venous blood specimen / Unknown Venipuncture / Unknown 04/11/2021 7:10 AM EDT 04/11/2021 7:44 AM EDT us Robbie Reynaga LAB BLOOD ORDERABLES Final Resul t Performing Organization Address City/[facility] Co de Phone Number [facility] [address] [place] [address] * Hepatitis B surface antibody (04/11/2021 7:10 AM EDT) Hepatitis B Surface Antibody Negative Negative mIU/mL 04/11/2021 11:29 AM EDT [facility] Comment:Antibodies to HBsAg are less than 8 International Units /L which indicate they are not detected or are below the protective level for immunity. Blood Venous blood specimen / Unknown Venipuncture / Unknown 04/11/2021 7:10 AM EDT 04/11/2021 7:44 AM EDT Robbie Reynaga LAB BLOOD ORDERABLES Final Resul t Performing Organization Address [facility] Co de Phone Number [facility] [address] [place] [address] * Hemoglobin A1c (04/11/2021 7:10 AM EDT) Hemoglobin A1c 5.4 <5.7 % 04/11/2021 10:49 AM EDT [facility] Blood Venous blood specimen / Unknown Venipuncture / Unknown 04/11/2021 7:10 AM EDT 04/11/2021 7:34 AM EDT Narrative [facility] - 04/11/2021 10:49 AM EDT HA1C Interpretive Data: Diagnosis of Diabetes: Diabetic > or = 6.5% Pre-diabetic 5.7 to 6.4% Non-diabetic < or = 5.6% Glycemic Targets for Type I and Type II Diabetics: Non- Adults <7.0% Adults <6.0% Children and Adolescents <7.5% Source: [place] [employer]. Standards of medical care in diabetes,2017. Diabetes Care.2017:40 (suppl 1):S1-S135. HbA1c assay performed by an ion-exchange chromatography method that is certified traceable to the DCCT. Robbie Reynaga LAB BLOOD ORDERABLES Final Resul t Performing Organization Address City/[facility] Co de Phone Number [facility] [address] [place] [address] * (ABNORMAL) Lipid panel (04/11/2021 7:10 AM EDT) Cholesterol, Plasma 172 <200 mg/dL 04/11/2021 9:40 AM EDT [facility] Comment: Cholesterol Reference Range (age >17 years): Desirable <200 mg/dL Borderline 200 to 239 mg/dL Undesirable >239 mg/dL HDL 53 >=40 mg/dL 04/11/2021 9:40 AM EDT [facility] Comment: HDL Cholesterol Reference Ranges (age >17 years): Female, acceptable > or = 50 mg/dL Male, acceptable > or = 40 mg/dL Triglycerides, Plasma 158(H) <150 mg/dL 04/11/2021 9:40 AM EDT [facility] Comment: Triglyceride Reference Range (age >17 years): Desirable: <150 mg/dL Borderline high: 150 to 199 mg/dL High: 200 to 499 mg/dL Very high: >499 mg/dL Increased risk of pancreatitis: >1000 mg/dL Cholesterol/HDL Ratio 3 04/11/2021 9:40 AM EDT [facility] LDL, Calculated 87.4 <100 mg/dL 9:40 AM EDT [facility] Comment: LDL Cholesterol Reference Range (age >17 years): Optimal: <100 mg/dL Near or above optional: 100 - 129 mg/dL Borderline high: 130 - 159 mg/dL High: 160 - 189 mg/dL Very high: >189 mg/dL LDL Cholesterol Reference Range (age <18 years): Desirable: <110 mg/dL Borderline: 110 - 129 mg/dL Undesirable: >130 mg/dL Blood Venous blood specimen / Unknown Venipuncture / Unknown 04/11/2021 7:10 AM EDT 04/11/2021 7:43 AM EDT us Robbie Reynaga LAB BLOOD ORDERABLES Final Resul t [facility] [address] [place] [address] * (ABNORMAL) Comprehensive metabolic panel (04/11/2021 7:10 AM EDT) Glucose, Plasma 98 74 - 99 mg/dL 04/11/2021 9:40 AM EDT [facility] BUN, Plasma 15 7 - 21 mg/dL 04/11/2021 9:40 AM EDT [facility] Creatinine, Plasma 1.05 0.80 - 1.30 mg/dL 04/11/2021 9:[facility] BUN/Creatinine Ratio 14 04/11/2021 9:40 AM [facility] Sodium, Plasma 142 136 - 145 mmol/L 04/11/2021 9:40 AM T [facility] Potassium, Plasma 4.8 3.7 - 4.8 mmol/L 04/11/2021 9:40 AM [facility] Chloride, Plasma 105 97 - 107 mmol/L 04/11/2021 9:40 AM EDT [facility] CO2, Plasma 29 22 - 29 mmol/L 04/11/2021 9:40 AM [facility] Anion Gap 8 6 - 16 mmol/L 04/11/2021 9:40 AM [facility] Total Calcium, Plasma 9.1 8.9 - 10.2 mg/dL 04/11/2021 9:40 AM [facility] Total Protein 6.1(L) 6.3 - 7.9 g/dL 04/11/2021 9:40 AM [facility] Albumin, Plasma 3.5 3.5 - 5.2 g/dL 04/11/2021 9:40 AM [facility] AST, Plasma 26 12 - 40 U/L 04/11/2021 9:40 AM [facility] ALT, Plasma 35 11 - 41 U/L 04/11/2021 9:40 AM [facility] Alkaline Phosphatase, Plasma 75 40 - 115 U/L 04/11/2021 9:40 AM [facility] Total Bilirubin, Plasma 0.3 0.2 - 1.1 mg/dL 04/11/2021 9:40 AM [facility] eGFR >60 >60 mL/min/1.7 3m*2 04/11/2021 9:40 AM [facility] Comment:eGFR = estimated GFR ; eGFR units = mL/min/1.73 sq meters Chronic Kidney Disease is considered if eGFR <60 mL/min/1.73 sq meters Kidney failure is considered if eGFR is <15 mL/min/1.73 sq meters. eGFR assumes steady state plasma creatinine concentration; not applicable if renal function is rapidly changing or patient is on dialysis. eGFR, if AFR/AM >60 >60 mL/min/1.7 3m*2 04/11/2021 9:40 AM EDT [facility] Comment:eGFR = estimated GFR ; eGFR units = mL/min/1.73 sq meters Chronic Kidney Disease is considered if eGFR <60 mL/min/1.73 sq meters Kidney failure is considered if eGFR is <15 mL/min/1.73 sq meters. eGFR assumes steady state plasma creatinine concentration; not applicable if renal function is rapidly changing or patient is on dialysis. Blood Venous blood specimen / Unknown Venipuncture / Unknown 04/11/2021 7:10 AM EDT 04/11/2021 7:43 AM EDT us Robbie Reynaga LAB BLOOD ORDERABLES Final Resul t [facility] [address] [place] [address] documented in this encounter Visit Diagnoses Diagnosis Routine general medical examination at a health care facility documented in this encounter
--- OUTSIDE RECORDS SUMMARY | 2025-02-19 14:01 | XMS_ITS | Data Portability ---
Author Organization [employer], [place] - [facility] Address [address] [place] [address] Assessment Encounter Date Assessment Date Assessment LastModified by Organization Details LastModified Time 04/29/2023 04/29/2023 Discussed blood pressures with the office of Dr. Mcdermott. They are scheduled to see him on Wednesday of next week. Patient has just begun taking his BP meds today. Gave patient a BP log and instructed to check his BP regularly. He stated he had access to do that. Will treat patients bronchitis as noted and as previously, effectively treated. Refills provided as noted. Advised patient to call or return for any new or changing symptoms. Instructed patient to go to the ER he experienced severe shortness of breath or any return of his chest pain. Not available 04/29/2023 15:56:25 Plan of Treatment Reminders Order Date Submit Date Provider Last Modified By Organization Details Last Modified Time Details Appointments ANNUAL EXAM 2024 11:00A Eddi Andrade APRN Not available Not available Not available Lab None recorded. Referral cardiolog ist referral - first available appt 2024 025 [facility], [address], [place], [address], 12/05/2024 09:51:32 dermatolo gist referral - first available appt 2022 023 [email or web address], [address], [place], [address], 07/29/2023 10:42:54 Procedures None recorded. Surgeries None recorded. Imaging CT, chest, w/o contrast 2024 025 [facility] (Scheduling), [address], [place], [id number], 02/13/2025 09:15:26 LDCT, chest, for lung cancer screening - first available appt 2024 025 [facility] (Scheduling), [address], [place], [id number], 12/07/2024 08:06:05 Medication Orders Breztri Aerospher e 160 mcg-9mcg- 4.8mcg/ac tuation HFA aerosol inhaler 2024 025 [employer] [facility], [address] [place] [address], [id number], 02/12/2025 13:51:21 Breztri Aerospher e 160 mcg-9mcg- 4.8mcg/ac tuation HFA aerosol inhaler 2024 025 [employer] [facility], [address] [place] [address], [id number], 01/06/2025 10:56:49 Ventolin HFA 90 mcg/actua tion aerosol inhaler 2024 025 [employer] [facility], [address] [place] [address], [id number], 12/29/2024 11:50:33 ipratropi um 0.5 mg-albute rol 3 mg (2.5 mg base)/3 mL nebulizat ion soln 2024 025 [employer], [address] [place] [address], [id number], 01/08/2025 14:56:31 azithromy ying 250 mg tablet 2024 025 [employer], [address] [place] [address], [id number], 02/07/2025 13:32:44 prednison e 10 mg tablets in a dose pack 2024 [employer] [facility], [address] [place] [address], [id number], 02/07/2025 13:32:43 varenicli ne tartrate 0.5 mg (11)-1 mg (42) tablets in a dose pack 2024 [employer] [facility], [address] [place] [address], [id number], 11/15/2024 14:33:29 magnesium oxide 400 mg (241.3 mg magnesium ) tablet 2023 [employer] [facility], [address] [place] [address], [id number], 02/07/2025 13:32:44 azithromy ying 250 mg tablet 2023 [facility] [employer] [facility], [address] [place] [address], [id number], 02/07/2025 13:20:43 prednison e 10 mg tablets in a dose pack 2023 [facility] [employer] [facility], [address] [place] [address], [id number], 02/07/2025 13:20:31 ipratropi um 0.5 mg-albute rol 3 mg (2.5 mg base)/3 mL nebulizat ion soln 2023 024 [employer] [facility], [address] [place] [address], [id number], 09/29/2024 17:24:55 Symbicort 160 mcg-4.5 mcg/actua tion HFA aerosol inhaler 2023 025 [employer] [facility], [address] [place] [address], [id number], 11/15/2024 11:31:55 Ventolin HFA 90 mcg/actua tion aerosol inhaler 2023 024 [employer] [facility], [address] [place] [address], [id number], 09/29/2024 17:24:56 ipratropi um 0.5 mg-albute rol 3 mg (2.5 mg base)/3 mL nebulizat ion soln 2022 023 [employer] [facility], [address] [place] [address], [id number], 09/21/2023 14:47:32 Symbicort 160 mcg-4.5 mcg/actua tion HFA aerosol inhaler 2022 023 [place] [address] [employer] [facility], [address] [place] [address], [id number], 11/15/2024 11:25:46 Stiolto Respimat 2.5 mcg-2.5 mcg/actua tion solution for inhalatio n 2022 023 [place] [address] [employer] [facility], [address] [place] [address], [id number], 07/25/2024 08:16:02 Ventolin HFA 90 mcg/actua tion aerosol inhaler 2022 023 [employer] [facility], [address] [place] [address], [id number], 04/29/2023 16:17:21 doxycycli ne hyclate 100 mg capsule 2022 023 [facility] [employer] [facility], [address] [place] [address], [id number], 07/25/2024 08:08:26 prednison e 20 mg tablet 2022 023 [facility] [employer] [facility], [address] [place] [address], [place], [place], [id number], 07/25/2024 08:08:13 Patient TargetsNo targets recorded. Patient InstructionsNo instructions recorded. Reason for Referral Street Sprinkler Referral for S kin lesion first available appt Referring Physician: Vanessa Andrade [facility] Medicine, Encounter Date: 04/07/2023 Fabrication Supervisor Referral for At herosclerosis of coronary artery without angina pectoris first available appt Referring Physician: Vanessa Andrade [facility] Medicine, Encounter Date: 11/15/2024 Results Created Date Observation Date Name Description Value Unit Range Abnormal Flag Note LastModifiedBy Organization Detail LastModifiedTime 04/26/2004/26/2023 XR, chest , 2 view No observ ation record ed. [address] (Radiology) [address] [place] [address] , [place], [address], 04/26/2023 17:56:17 05/24/2005/24/2023 XR, chest No observ ation record ed. [address] (Radiology) [address] [place] [address] , [place], [address], 05/24/2023 18:05:29 10/14/19 25 10/14/2024 XR, chest No observ ation record ed. [address] (Radiology) [address] [place] [address] , [place], [address], 10/15/2024 18:31:49 12/08/1912/06/2024 LDCT, chest , for lung cance r scree cherelle No observ ation record ed. [facility] [address], [place], [address], 12/09/2024 09:57:39 Result Notes None recorded. Problems Name Problem SNOMED Code Status Onset Date Resolution Date Notes Provider Name and Address Organization Details Recorded Time Myocardi al infarcti on 55796895 Completed 202204/26/2023 CHAD GUADALUPE null, [employer] 3 14:07:31 Acute bronchit is 16160907 Active 2022 YUNIER ROSENBERG, RAILROAD PASSENGER AGENT-BC [address] [place] [address], [address] [place] [address] , [employer] 3 14:59:37 Tobacco dependen ce caused by cigarett es 73356596083 989494 Active 2024 Problem Code: F17.210; Problem Code Type: ICD-10; Vanessa Andrade, DRIER UNLOADER [address] [place], [place], [address] [place] [address] , [employer] 5 11:07:21 Atherosc lerosis of coronary artery without angina pectoris 13954918422 4103 Active 2024 Vanessa Andrade, [employer]RIER UNLOADER [address] [place], [place], [address] [place] [address] , [employer] 5 11:07:22 Multiple nodules of lung 619295223 Active 2024 Vanessa Andrade, [employer]ER UNLOADER [address] [place], [place], [address] [place] [address] , [employer] 5 13:31:50 Candidal balaniti s 09302448 Completed 201808/08/2019 Problem Code: B37.42; Problem Code Type: ICD-10; Not Available [facility] 2 22:46:02 Methicil yasmany resistan t Staphylo coccus aureus infectio n 809776384 Completed 201912/19/2020 Problem Code: B95.62; Problem Code Type: ICD-10; Not Available [facility] 2 22:46:02 Neoplasm of bone 584415011 Completed 201808/08/2019 Not Available [facility] 2 22:46:02 Nicotine dependen ce 43206388 Completed 201807/31/2022 Problem Code: F17.200; Problem Code Type: ICD-10; SILVA hyatt, [employer] 2 10:52:42 Tobacco dependen ce caused by cigarett es 09164050080 869392 Completed 201907/31/2022 Problem Code: F17.210; Problem Code Type: ICD-10; Vanessa Andrade, [employer]RIER UNLOADER [address] [place], [address] , [employer] 5 11:07:21 Nicotine dependen ce 58156218 Completed 201805/25/2021 Problem Code: F17.200; Problem Code Type: ICD-10; SILVA MYNEAR null, [employer] 2 10:52:42 Primary insomnia 1793821 Completed 201707/04/2018 Problem Code: F51.01; Problem Code Type: ICD-10; Not Available [facility] 2 22:46:02 Chronic pain syndrome 543448484 Completed 202007/31/2022 Problem Code: G89.4; Problem Code Type: ICD-10; SILVA MYNEAR null, [employer] 2 10:52:41 Acute maxillar y sinusiti s 05708880 Completed 201808/08/2019 Problem Code: J01.00; Problem Code Type: ICD-10; Not Available [facility] 2 22:46:02 Acute pharyngi tis 336336649 Completed 201807/31/2022 SILVA MYNEAR null, [employer] 2 10:52:41 Acute pharyngi tis 889572120 Completed 201808/08/2019 SILVA MYNEAR null, [employer] 2 10:52:41 Infectiv e pneumoni a 310177433 Completed 201709/03/2018 Problem Code: J16.8; Problem Code Type: ICD-10; Not Available [facility] 2 22:46:03 Acute exacerba tion of chronic obstruct fozia pulmonar y disease 723220096 Completed 201905/25/2021 Problem Code: J44.1; Problem Code Type: ICD-10; Vanessa Lupe, DRIER UNLOADER [address] [facility], [place], [address] , [employer] 5 13:33:27 Chronic obstruct fozia pulmonar y disease 03352393 Active 2017 Problem Code: J44.9; Problem Code Type: ICD-10; CHAD GUADALUPE null, [employer] 3 14:07:31 Exacerba tion of intermit tent asthma 592733186 Completed 201807/31/2022 Problem Code: J45.21; Problem Code Type: ICD-10; SILVA ANGELONEAR null, [employer] 10:52:41 Exacerba tion of intermit tent asthma 201696960 Completed 201707/01/2018 Problem Code: J45.21; Problem Code Type: ICD-10; SILVA MYNEAR null, [employer] 10:52:41 Atelecta sis 31366349 Completed 201808/08/2019 Problem Code: J98.11; Problem Code Type: ICD-10; Not Available [facility] 2 22:46:03 Abscess of buttock 69524023 Completed 201912/19/2020 Problem Code: L02.31; Problem Code Type: ICD-10; Not Available [facility] 2 22:46:03 Constipa tion 28796687 Completed 201807/31/2022 SILVA MYNEAR null, [employer] 2 10:52:41 Cellulit is of buttock 81546684 Completed 201907/31/2022 Problem Code: L03.317; Problem Code Type: ICD-10; SILVA MYNEAR null, [employer] 2 10:52:41 Neck pain 34483717 Completed 201807/31/2022 SILVA MYNEAR null, [employer] 10:52:42 Acute back pain with sciatica 308332474 Completed 201905/25/2021 Problem Code: M54.42; Problem Code Type: ICD-10; Not Available [facility] 22:46:04 Neck pain 84743508 Completed 201808/08/2019 SILVA BURNHAMR null, [employer] 2 10:52:42 Cough 41696922 Completed 201807/31/2022 Problem Code: R05; Problem Code Type: ICD-10; SILVA BURNHAMR null, [employer] 10:52:41 Chest pain 89499235 Completed 201809/10/2019 Problem Code: R07.9; Problem Code Type: ICD-10; SILVA BURNHAMR null, [employer] 2 10:52:41 Dyspnea 187325451 Completed 201707/19/2018 Problem Code: R06.02; Problem Code Type: ICD-10; SILVA BURNHAMR null, [employer] 10:52:41 Wheezing 34563155 Completed 202007/31/2022 Problem Code: R06.2; Problem Code Type: ICD-10; SILVA BURNHAMR null, [employer] 10:52:42 Chest pain 07407387 Completed 201807/31/2022 Problem Code: R07.89; Problem Code Type: ICD-10; SILVA STEPHENSNEAR null, [employer] 10:52:41 Cough 92815926 Completed 201809/10/2019 Problem Code: R05; Problem Code Type: ICD-10; SILVA STEPHENSNEAR null, [employer] 10:52:41 Fracture of upper end of humerus 003112089 Completed 202007/31/2022 Problem Code: S42.201A ; Problem Code Type: ICD-10; SILVA CARMONA null, [employer] 10:52:41 Traumati c rupture of rotator cuff 145950004 Completed 201706/10/2018 Problem Code: S46.091A ; Problem Code Type: ICD-10; Not Available [facility] 2 22:46:06 Exposure to SARS-CoV -2 Completed 202005/25/2021 Problem Code: Z20.822; Problem Code Type: ICD-10; Not Available [facility] 22:46:06 Influenz a vaccine needed 22023473822 Completed 201808/08/2019 Problem Code: Z23; Problem Code Type: ICD-10; SILVA CARMONA null, [employer] 2 10:52:41 Influenz a vaccine needed 00085279919 06 Completed 202007/31/2022 Problem Code: Z23; Problem Code Type: ICD-10; SILVA CARMONA null, [employer] 2 10:52:41 Acute exacerba tion of chronic obstruct fozia pulmonar y disease 786983459 Completed 202005/25/2021 Problem Code: J44.1; Problem Code Type: ICD-10; Vanessa Andrade, DRIER UNLOADER [address] [place] [address], [phone] , [employer] 5 13:33:27 Body mass index 20-24 - normal 171765231 Completed 201808/08/2019 SILVA BURNHAMR null, [employer] 2 10:52:41 Body mass index 20-24 - normal 303013820 Completed 201807/31/2022 SILVA STEPHENSSUNDAYR null, [employer] 2 10:52:41 Allergic contact dermatit is caused by plant material 77536938370 297162 Completed 201907/31/2022 Problem Code: L23.7; Problem Code Type: ICD-10; SILVA STEPHENSNEAR null, [employer] 10:52:41 Pain of right shoulder joint 61113499948 296149 Completed 201704/25/2018 Problem Code: M25.511; Problem Code Type: ICD-10; Not Available [facility] 2 22:46:09 Transien t insomnia 057570941 Completed 201707/04/2018 Problem Code: 307.41; Problem Code Type: ICD-9; Not Available [facility] 2 22:46:09 Dyspnea 141278436 Completed 202007/31/2022 Problem Code: R06.00; Problem Code Type: ICD-10; SILVA STEPHENSNEAR null, [employer] 2 10:52:41 Tenderne ss of epigastr ic region 702917319 Completed 201807/31/2022 Problem Code: R10.816; Problem Code Type: ICD-10; SILVA STEPHENSNEAR null, [employer] 10:52:41 Pneumoni a 547183518 Completed 201709/03/2018 Problem Code: 483.8; Problem Code Type: ICD-9; Not Available [facility] 2 22:46:10 Respirat ory symptom 737240552 Completed 201707/19/2018 Not Available [facility] 2 22:46:10 Shoulder joint pain 013920151 Completed 201704/25/2018 Problem Code: 719.41; Problem Code Type: ICD-9; Not Available [facility] 2 22:46:10 Injury of shoulder region 071498327 Completed 201706/10/2018 Problem Code: 959.2; Problem Code Type: ICD-9; Not Available [facility] 2 22:46:11 Cough 77735099 Completed 201707/01/2018 Problem Code: 786.2; Problem Code Type: ICD-9; SILVA MYNEAR null, [employer] 2 10:52:41 Bite of nonvenom ous insect Completed 201907/31/2022 SILVA hyatt, [employer] 2 10:52:42 Influenz a vaccine needed 93865974910 06 Completed 201912/19/2020 Problem Code: Z23; Problem Code Type: ICD-10; SILVA hyatt, [employer] 2 10:52:41 Problem Notes None recorded. Procedures Surgical History Date Name Laterality Status Provider Name and Address Organization Details Recorded Time 3 placement of stent in cardiac conduit completed Vanessa Andrade APRN [address] [place] [address], [phone] [employer] 11/15/2024 11:10:39 6 screening colonoscopy completed Chana Radhadebbie [employer]. 11/05/2022 10:10:44 Imaging Results None recorded. Procedure Notes None recorded. Medical Equipment None Reported. Allergies Allergen ID Allergen Name Allergen Category Reaction Reaction Severity Criticality Documentation Date Start Date Code Code System Note Provider Name and Address Organization Details Recorded Time 57149 Product containin g penicilli n (product) medicatio n rash mild Not available 05/05/20222019 97101 8001 SNOMED CHAD hyatt, [employer] 3 14:07:30 18292 morphine sulfate medicatio n Not available Not available Not available 05/05/2022 01101 RxNorm Not Available [facility] 2 22:56:37 38299 tolmetin sodium medicatio n Not available Not available Not available 05/05/2022 63655 RxNorm Chana Garciadebbie [email or web address] 3 10:09:18 22859 codeine sulfate medicatio n Not available Not available Not available 05/05/2022 25464 RxNorm Not Available [facility] 2 22:56:38 67092 morphine medicatio n rash mild Not available 04/29/20232019 7052 RxNorm CHAD hyatt, [employer] 3 14:07:30 04887 codeine medicatio n rash mild Not available 04/29/20232019 2670 RxNorm CHAD hyatt, [employer] 3 14:07:30 Medications Name Sig Start Date Stop [...] Not Available Not Available Not Available dextrometho elvia enesin 10 mg-100 mg/5 mL oral syrup [...] height Body mass index (BMI) Body weight Heart rate Oxygen saturation Oxygen saturation in Arterial blood by Pulse oximetry Systolic blood pressure Diastolic blood pressure Systolic blood pressure Diastolic blood pressure Provider Name and Address Organization Details Last Updated DateTime 5 172.72 cm 28.3 kg/m2 67602.5 3 g 106 /min 92 % 92 % 148 mm[Hg] 93 mm[Hg] 136 mm[Hg] 88 mm[Hg] Dania Nielson [employer]. 5 11:03:33 Date Recorded Body height Body mass index (BMI) Body weight Body temperature Heart rate Oxygen saturation Oxygen saturation in Arterial blood by Pulse oximetry Systolic blood pressure Diastolic blood pressure Provider Name and Address Organization Details Last Updated DateTime 5 172.72 cm 28 kg/m2 63161 g 97.8 [degF] 88 /min 92 % 92 % 123 mm[Hg] 68 mm[Hg] SILVA [employer] 5 13:20:14 Date Recorded Body height Body mass index (BMI) Body weight Body temperature Heart rate Oxygen saturation Oxygen saturation in Arterial blood by Pulse oximetry Systolic blood pressure Diastolic blood pressure Systolic blood pressure Diastolic blood pressure Systolic blood pressure Diastolic blood pressure Provider Name and Address Organization Details Last Updated DateTime 3 172.72 cm 26.8 kg/m2 50032.7 g 97.5 [degF] 87 /min 97 % 97 % 156 mm[Hg] 78 mm[Hg] 146 mm[Hg] 87 mm[Hg] 150 mm[Hg] 80 mm[Hg] SILVA ANGELOGILSON [employer] 3 13:51:16 Date Recorded Systolic blood pressure Diastolic blood pressure Provider Name and Address Organization Details Last Updated DateTime 04/29/2023 172 mm[Hg] 110 mm[Hg] KATHRINE GARCIA-[address], [address], [employer] 04/29/2023 14:50:11 Date Recorded Body height Body mass index (BMI) Body weight Heart rate Oxygen saturation Oxygen saturation in Arterial blood by Pulse oximetry Systolic blood pressure Diastolic blood pressure Provider Name and Address Organization Details Last Updated DateTime 3 172.72 cm 26.4 kg/m2 48207.5 8 g 77 /min 97 % 97 % 174 mm[Hg] 114 mm[Hg] CHAD GUADALUPE [employer] 3 14:29:29 Date Recorded Body weight Body mass index (BMI) Body height Body temperature Heart rate Oxygen saturation Oxygen saturation in Arterial blood by Pulse oximetry Systolic blood pressure Diastolic blood pressure Systolic blood pressure Diastolic blood pressure Systolic blood pressure Diastolic blood pressure Provider Name and Address Organization Details Last Updated DateTime 4 91661.4 2 g 29 kg/m2 172.72 cm 97.8 [degF] 97 /min 92 % 92 % 160 mm[Hg] 82 mm[Hg] 164 mm[Hg] 83 mm[Hg] 161 mm[Hg] 81 mm[Hg] SILVA BURNHAMSilvia [employer]. 4 08:07:47 Social History Question Answer Notes LastModified by [email or web address] ion Details LastModified Time Tobacco Smoking Status Current Every Day Smoker SILVA BURNHAMSilvia [facility]. 04/07/2023 13:53:49 Do You Have An Advance Directive? No Information n ot available 07/31/2022 Is Your Home Air Conditioned? Yes Information not available 07/31/2022 Are You Blind Or Do You Have Difficulty Seeing? No [email or web address] Information n ot available 04/29/2023 In The [...] Do You Have Serious Difficulty Hearing? No [email or web address] Information not available 04/29/2023 What Type Of Diet Are You Following? REGULAR Information n ot available 07/31/2022 Have There Been Any Changes To Your Family Or Social Situation? No Information no t available 07/31/2022 Are There Any Guns Present In Your Home? No Information not available 07/31/2022 Do You Have A Medical Power Of Animal Therapist? No Information not available 07/31/2022 What Was [...] Much Tobacco Do You Smoke? 0.25 PPD [email or web address] Information not available 04/29/2023 Do You Participate In Social Media? No [email or web address] Information not available 11/15/2024 Do You Use Sunscreen Routinely? No Information not available 07/31/2022 Has Tobacco Cessation Counseling Been Provided? No Information not available 07/31/2022 Have You Recently Traveled Abroad? No Information not available 07/31/2022 Do You Have Difficulty Walking Or Climbing Stairs? No [email or web address] Information not available 04/29/2023 Are You Currently [...] 07/31/2022 Do you have transportation difficulties? No [email or web address] Information not available 04/29/2023 Are you able to walk? YESWOREST [email or web address] Information not available 04/29/2023 Do you have difficulty doing errands alone? No [email or web address] Information not available 04/29/2023 Are you able to care for yourself? Yes Information not available 07/31/2022 Do you have difficulty dressing or bathing? No [email or web address] Information not available 04/29/2023 Mental Status Question Answer Note LastModified by Organization D etails LastModified Time Do you have difficulty concentrating, remembering or making decisions? No [email or web address] Information no t available 04/29/2023 Family History Relationship Description Onset Age of this Age Resolved Age Notes LastModified by Organization Details LastModified Time Sister Family history of Cardiovascul ar disease [email or web address] Not available 14:23:46 Sister Family history of malignant neoplasm [email or web address] Not available 14:24:19 Father Family history of malignant neoplasm [email or web address] Not available 14:24:19 Paternal Grandmother Family history of malignant neoplasm [email or web address] Not available 14:24:19 Medical History Condition Response Emergency room visit since last appointm ent. N COPD Y Asthma Y Heart Disease Y Immunizations Vaccine Type Date Status Note Provider Nam e and Address Organization Details Recorded Time Influenza, split virus, quadrivalent, preservative 8 completed Not Available [facility] 04/28/2023 15:20:13 Influenza, MDCK, quadrivalent, preservative 9 completed Not Available [facility] 04/28/2023 15:20:13 Influenza, split virus, quadrivalent, preservative 0 completed Not Available [facility] 04/28/2023 15:20:13 Influenza, split virus, quadrivalent, PF 1 completed Not Available [facility] 04/28/2023 15:20:13 Influenza, split virus, trivalent, preservative 4 completed Not Available [facility] 04/28/2023 15:20:13 pneumococcal polysaccharide PPV23 5 completed SILAV hyatt [facility] [employer], [employer] 02/07/2025 13:50:40 Past Encounters Encounter ID Performer Location Encounter Start Date Encounter Closed Date Diagnosis/Indication Diagnosis SNOMED-CT Code Diagnosis ICD10 Code Diagnosis Note [id number] Vanessa Andarde [place] [id number] 07/31/2022 10:31:33 07/31/2022 11:26:40 Acute exacerbation of chronic obstructive pulmonary disease [id number] J44.1 Stop smoking. Use of inhalers explained. [id number] Vanessa Andrade DRIER UNLOADER [place] [id number] 11/25/2022 16:45:01 11/25/2022 17:12:18 Acute gastroenteritis [id number] K52.9 Patient was seen in the office today for nausea. Reviewed history regarding recent illness, medication s, symptoms, and physical exam. Studies ordered as below. Discussed plan with patient, who expresses understand ing. Follow up as noted below. [id number] Vanessa Andrade APRN [place] [id number] 0 04/07/2023 13:43:55 04/07/2023 17:02:28 Skin lesion [id number] L98.9 Left forearm - suspicious for squamous cell skin cancer. Elevated blood-pressure reading without diagnosis of hypertension [id number] R03.0 Drank an energy drink on the way here. He is to check his BP at home and report consistent readings of 140/90 or greater [id number] YUNIER ROSENBERG [place] [id number] 0 04/29/2023 13:56:47 04/29/2023 16:10:18 Chronic obstructive pulmonary disease [id number] J44.9 Acute exac erbation of chronic obstructive pulmonary disease [id number] J44.1 Acute bronchitis [id number] 2 J20.9 [id number] [place] [id number] 0 07/25/2024 07:50:07 07/25/2024 08:31:21 Acute exacerbation of chronic obstructive pulmonary disease [id number] J44.1 Stop smoking. Use of inhalers explained. Purpose of maintenanc e inhalers vs rescue explained. I recommende d he establish with a Pulmonolog ist and he declined. Tobacco de pendence caused by cigarettes [id number] F17.210 Smoking cessation again encouraged . Cramp in lower limb 1225 45985 R25.2 Hydrate. [id number] [place] [id number] 0 11/15/2024 10:45:44 11/15/2024 12:36:15 Chronic obstructive pulmonary disease 71921165 J44.9 Change Symbicort to Breztri to move to triple therapy. He says he is not willing to see Pulmonary again at this time nor is he willing to consider smoking cessation stating I will smoke until I . Atheroscle rosis of coronary artery without angina pectoris [id number] I25.10 Refer to Cardiology . He needs Cardio follow up and to be on meds for CAD. Tobacco de pendence caused by cigarettes [id number] F17.210 Smoking cessation again encouraged . Screening for malignant neoplasm of respiratory tract 693532576 Z12.2 [id number] [place] [id number] 0 02/07/2025 12:44:12 02/07/2025 13:52:08 Multiple nodules of lung 101203824 R91.8 Now due for 3 month radiologis t recommende d f/up CHEST CT. Chronic ob structive pulmonary disease 23334310 J44.9 He states Breztri has been very effective with decreased use of rescue albuterol! Active immunization 5647 9002 Z23 Tobacco de pendence caused by cigarettes [id number] F17.210 Smoking cessation again encouraged . Health Concerns Section Related Observation LastModified by Organization Detai ls LastModified Time None Recorded Concern Status LastModified by Organization Details LastModified Time None Recorded Advance Directives Directive N: Payers Insurance Date Sequence Insurance Name Policy Number Policy Casper Covered Member ID Casper Member ID Guarantor Name 02/12/[address] [facility] (MEDICAID HMO) Robbie Mccracken [id number] Robbie Mccracken Notes Date Note Type Note Provider Name and Address Organization Details Recorded Time 04/07/2023 text/html Skin LesionRepor lois bypatient.Location:arm s; left lateral forearm Quality:painful; tender; sore; traumatize easily Severity:moderate Duration:started 3 week(s) ago Onset/Timing:abrupt; growing rapidly; becoming more symptomatic; identified by self Context:skin exposure ; work outdoors Associated Symptoms:no fever; no cold symptoms; no nausea; no vomiting; no diarrhea; no urinary symptoms; no skin flakes;scabs fell off and recur Vanessa Andrade APRN [address] [place], [address], [employer]. 04/07/2023 14:53:26 04/29/2023 text/html [place] on Wednesday and had PCI with 2 blockages. Presents today with shortness of air and elevated BP. Patient just began blood pressure medicines this am. Reports cough, bronchitis symptoms starting this week. History of the same previously. Sees. Dr. Mcdermott with [facility]. YUNIER ROSENBERG, [facility]- [address] [place], [address], [employer] 04/29/2023 15:56:55 07/25/2024 text/html COPDReported bypatient.Onset/Timing :multiple times per day Duration:chronic; has noted for years; attacks are frequent Severity:slowly worsening; moderate Context:cigarette smoking; recurrent bronchopulmonary infections Alleviating factors:relieved with bronchodilator Aggravating factors:worse with cigarette smoking;worse with exertion Associated Symptoms:no snoring; no excessive daytime sleepiness; no arousals from sleep;dyspnea;dyspnea during exertion;decrease in exercise capacity;fatigue;cough ;wheezing;anxiety;ches t tightness Patient has been lost to care for 2 years. He reports he hs been going to [facility] when he has had COPD flares. Is out of inhalers and nebs. Also complains of nocturnal leg cramps. Vanessa Andrade APRN [address] [place], [address], [employer] 07/25/2024 13:13:55 11/15/2024 text/html Patient who has been lost to care for 2 years. He has stage 3 COPD with an allergic component. He is using symbicort but has frequent exacerbations mostly in spring and fall. He continues to smoke heavily. Has never had Low dose screening lung CT. Did see Pulmonary and had PFT in 2020?? Robbie also has CAD. He had a NSTEMI in 03/2023 and underwent LHC and had two stents placed. He is not taking any appropriate meds for CAD. He states Yeah all those meds they tried to give me make me sick. He has never seen Cardio for f/up since [place] in 2022. Vanessa Andrade APRN [address] [place], [address], [employer] 11/16/2024 21:30:17 02/07/2025 text/html COPDReported bypatient.Onset/Timing :multiple times per [...] to smoke but has cut back. Vanessa Andrade APRN [address] [facility], [place], [address], [employer] 02/11/2025 19:38:14
--- OUTSIDE RECORDS SUMMARY | 2025-02-19 14:01 | XMS_ITS | Clinical Summary ---
Author Organization [facility] [employer] Address [address] [place] [address] Care Team Providers Care Yarn Dyer Name Role Phone Vanessa Andrade APRN Primary Care Provider [phone] Allergies Active Allergy Reactions Criticality Noted Date Comments Codeine Rash Low 09/12/2019 Morphine Rash Low 09/12/2019 Penicillins Rash Low 09/12/2019 Medications No known medications Active Problems Problem Noted Date Diagnosed Date NSTEMI (non-ST elevated myocardial infarction) 0 04/26/2023 Social History Tobacco Use Types Packs/Day Years Used Date Smoking Tobacco: Never Assessed PRAPARE - Transportation Answer Date Re corded In the past 12 months, has l ack of transportation kept you from medical appointments or from getting medications? No 04/27/2023 Lack of Transportation (Non-Medical) Not on file 04/27/2023 Housing Stability Vital Sign Answer Cachorro e Recorded In the last 12 months, was t here a time when you were not able to pay the mortgage or rent on time? No 04/27/2023 In the last 12 months, how many places have you lived? 1 04/27/2023 In the last 12 months, was t here a time when you did not have a steady place to sleep or slept in a intermediate (including now)? No 04/27/2023 Interpersonal Safety Answer Date Record ed Family or friends hurt you Not on file 09/17 Family or friends insult you Not on file Family or friends threaten you Not on file 0 09/17/2023 Family or friends scream or curse at you Not on file 09/17/2023 Housing Stability Answer Date Recorded Living situation today Not on file 03/20/202 4 Living situation problems Not on file 2023 Family and Community Support Answer Cachorro e Recorded Help with Day to Day Activities Not on file 09/17/2023 Feeling Lonely or Isolated Not on file 09/17 Educational Attainment Answer Date Kyle rded Speak language other than [place] at home Not on file 09/17/2023 Want help with school or training Not on file 09/17/2023 Depression Answer Date Recorded PHQ-2 Risk Not on file 09/17/2023 Disabilities Answer Date Recorded Difficulty concentrating Not on file 024 Difficulty doing errands alone Not on file 0 09/17/2023 Substance Use Answer Date Recorded Used prescription meds for non-medical reasons N ot on file 09/17/2023 Used illegal drugs past 12 months Not on file 09/17/2023 Sex and Gender Information Value Date Recorded Sex Assigned at Not on file Legal Sex Male 1:28 PM CDT Gender Identity Not on file Sexual Orientation Not on file Last Filed Vital Signs Vital Sign Reading Time Taken Comments Blood Pressure 134/73 04/28/2023 9:55 AM EDT Pulse 78 04/28/2023 9:55 AM EDT Temperature 36.6 C (97.9 F) 04/28/2023 9:55 AM EDT Respiratory Rate 17 04/28/2023 9:55 AM EDT Oxygen Saturation 93% 04/28/2023 9:55 AM EDT Inhaled Oxygen Concentration - - Weight 73.6 kg (162 lb 3.2 oz) 04/27/2023 12:38 AM EDT Height 172.7 cm (5' 8 ) 04/27/2023 12:38 AM EDT Body Mass Index 24.66 04/27/2023 12:38 AM EDT Plan of Treatment Health Maintenance Due Date Last Done Comments CT Colonography 1963 Colonoscopy 1963 Colorectal Cancer Screening 1963 FOBT/FIT 1963 Fit-DNA (Cologuard) 1963 Sigmoidoscopy 1963 Depression Screening (12+) 1975 Tobacco Cessation Counseling and Screening (12+) 1975 HIV Screening 1978 Hepatitis C Screening 1981 DTAP/TDAP/TD VACCINES (1 - Tdap) 1982 Pneumococcal 50+ years (1 of 1 - PCV) 2013 Shingles Vaccine (Zoster) (1 of 2) 2013 COVID-19 VACCINE (1 - 2023-2 5 season) 2024 Influenza Vaccine (Season Ended) 2025 06/20/2019, 06/20/2019, 06/20/2019, Additional history exists Lipid Panel 04/27/2028 04/27/2023, 04/11/2021 Respiratory Syncytial Virus (RSV) Adult or (1 - 1-dose 75+ series) 2038 Procedures Procedure Name Priority Date/Time Associated Diagnosis Comments LIPID PANEL Routine 04/27/2023 5:22 AM EDT from Last 3 Months or Most Recently Relevant to Health Maintenance Results * (ABNORMAL) Lipid panel (04/27/2023 5:22 AM EDT) Triglycerides 116 0 - 249 mg/dL 04/27/2023 6:09 AM [facility] Cholesterol 187 0 - 199 mg/dL 04/27/2023 6:09 AM T [facility] Comment: 200 to 239 mg/dL = Moderate (borderline) >239 mg/dL = High HDL Cholesterol 33(L) >=40 mg/dL 04/27/2023 6:09 AM [facility] Comment: >=60 mg/dL = Desirable <40 mg/dL = Increased Risk All other components are listed individually or are calculations VLDL Cholesterol 23.2 5 - 40 mg/dL 04/27/2023 6:09 AM [facility] Cholesterol/HDL ratio 5.7(H) 0.0 - 3.2 04/27/2023 6:09 AM [facility] LDl/HDL Ratio 4 0 - 4 04/27/2023 6:09 AM [facility] RISK COMP 6 04/27/2023 6:09 AM [facility] LDL Cholesterol, Calculated 131(H) 0 - 99 mg/dL 04/27/2023 6:09 AM [facility] Blood Venipuncture / Unknown 04/27/2023 5:22 AM EDT 04/27/2023 5:45 AM EDT us Kain Ahumada MD LAB BLOOD ORDERABLES Final Re sult [facility] [address] [place] [id number], [facility] [phone] from Last 3 Months or Most Recently Relevant to Health Maintenance Insurance [facility] Advance Directives For more information, please contact: [phone] * Full Code (Latest Code Status on File) Date Activated Date Inactivated Comments 04/26/2023 9:43 PM 04/28/2023 1:19 PM Care Teams Yarn Dyer Relationship Specialty Start Date End Date Vanessa Andrade, RESIDENTIAL [employer] TECHNICIAN [address] [place] [address] PCP - General Family Medicine 04/26/23
--- OUTSIDE RECORDS SUMMARY | 2025-02-19 14:01 | XMS_ITS | Clinical Summary ---
Author Organization Healthcare Address [address] [place] [address] Care Team Providers Care Chiropractic Care Name Role Phone Unavailable Primary Care Provider Unavailabl e Social History Tobacco Use Types Packs/Day Years Used Date Smoking Tobacco: Never Assessed Sex and Gender Information Value Date Recorded Sex Assigned at Not on file Legal Sex Male 6:16 AM EDT Gender Identity Not on file Sexual Orientation Not on file Plan of Treatment Not on file
--- OUTSIDE RECORDS SUMMARY | 2025-02-19 14:02 | XMS_ITS | Referral Summary ---
Author Organization [facility] [employer] Address [address] [place] [address] Care Team Providers Care Dishing Machine Operator Name Role Phone Vanessa Andrade APRN Primary Care Provider [phone] Allergies Active Allergy Reactions Criticality Noted Date [...] place to sleep or slept in a skilled nursing (including now)? No 04/27/2023 Interpersonal Safety Answer [...] Date Kyle rded Speak language other than Faroese at home Not on file 09/17/2023 Want [...] 04/27/2023 12:38 AM EDT Plan of Treatment Not on file Procedures Procedure Name Priority Date/Time Associated Diagnosis Comments LIPID PANEL Routine 04/27/2023 5:22 AM EDT from Last 3 Months or Most Recently Relevant to Health Maintenance Results * (ABNORMAL) Lipid panel (04/27/2023 5:22 AM EDT) Triglycerides 116 0 - 249 mg/dL 04/27/2023 6:09 AM EDT [facility] Cholesterol 187 0 - 199 mg/dL 04/27/2023 6:09 AM EDT [facility] Comment: 200 to 239 mg/dL = Moderate (borderline) >239 mg/dL = High HDL Cholesterol 33(L) >=40 mg/dL 04/27/2023 6:09 AM EDT [facility] Comment: >=60 mg/dL = Desirable <40 mg/dL = Increased Risk All other components are listed individually or are calculations VLDL Cholesterol 23.2 5 - 40 mg/dL 04/27/2023 6:09 AM EDT [facility] Cholesterol/HDL ratio 5.7(H) 0.0 - 3.2 04/27/2023 6:09 AM EDT [facility] LDl/HDL Ratio 4 0 - 4 04/27/2023 6:09 AM EDT [facility] RISK COMP 6 04/27/2023 6:09 AM EDT [facility] LDL Cholesterol, Calculated 131(H) 0 - 99 mg/dL 04/27/2023 6:09 AM EDT [facility] Blood Venipuncture / Unknown 04/27/2023 5:22 AM EDT 04/27/2023 5:45 AM EDT Kain Ahumada MD LAB BLOOD ORDERABLES Final Re sult [facility] [address] [place] [address], [facility] [phone] from Last 3 Months or Most Recently Relevant to Health Maintenance [place] [address] [address] Advance Directives For more information, please contact: [phone] * Full Code (Latest Code Status on File) Date Activated Date Inactivated Comments 04/26/2023 9:43 PM 04/28/2023 1:19 PM Care Teams Dishing Machine Operator Relationship Specialty Start Date End Date Vanessa Andrade, FURNACE FEEDER [address] [place] [address] PCP - General Family Medicine 04/26/23
== END 2025-02-19 23:59 | disposition home or self-care (01) ==
LOC: RAD 13:58
PROVIDERS: PCP Nurse Practitioner Family; Visit Provider Nurse Practitioner Family
DX: R91.8 Other nonspecific abnormal finding of lung field (principal)
CPT/HCPCS: 71250